=== PATIENT | female | born 1955 | race Caucasian/White ===

== ENCOUNTER → 2024-11-24 | Outpatient (CLI) | payer MEDICARE ==
--- NOTE | 2024-11-24 14:21 | MM ---
Reason for Exam: Screening (asymptomatic). Last mammogram was performed 1 year(s) and 8 month(s) ago. Patient History: Menarche at age 10. First Full-Term at age 16. Postmenopausal. Risk Values: Sherrill 5 year model risk: 1.3%. NCI Lifetime model risk: 3.5%. Prior Study Comparison: 01/05/2020 Bilateral Screening Mammogram, Unknown. 01/06/2021 Bilateral Screening Mammogram, Unknown. 01/08/2022 Bilateral Screening Mammogram, Unknown. 03/21/2023 Bilateral Screening Mammogram, Unknown. Tissue Density: The breasts are heterogeneously dense, which may obscure small masses. Findings: Benign-appearing vascular calcifications bilaterally as redemonstrated. There is 1.2 cm circumscribed mass in the middle depth upper aspect left breast not clearly seen on old outside studies approximately 5 cm distance from nipple. Overall Assessment: Incomplete: need additional imaging evaluation, BI-RAD 0 Management: Diagnostic Breast Ultrasound of the left breast. Targeted ultrasound left breast. Patient should continue monthly self-breast exams. A clinical breast exam by your physician is recommended on an annual basis. This exam should not preclude additional follow-up of suspicious palpable abnormalities. Note on Sherrill scores and lifetime risk: 1. A Sherrill score greater than 3% is considered moderate risk. If this is the case, consider specialist referral to assess eligibility for a risk reducing agent. 2. If overall lifetime risk for the development of breast cancer is 20% or higher, the patient may qualify for future screening with alternating mammogram and breast MRI. [facility], , 11/24/2024 2:17 PM. Electronically signed and approved by: Washington Bowman M.D.
== END | disposition home or self-care (01) ==
LOC: RADMAMWWP 11:44
PROVIDERS: ATTEND Family Medicine
DX: Z12.31 Encounter for screening mammogram for malignant neoplasm of breast (principal); R92.333 Mammographic heterogeneous density, bilateral breasts; R92.1 Mammographic calcification found on diagnostic imaging of breast; Z78.0 Asymptomatic menopausal state
CPT/HCPCS: 77063; 77067

== ENCOUNTER → 2024-11-26 | Outpatient (CLI) | payer MEDICARE ==
--- NOTE | 2024-11-26 16:03 | USB ---
Reason for Exam: Additional evaluation requested from abnormal screening. Patient History: Menarche at age 10. First Full-Term at age 16. Postmenopausal. Risk Values: Sherrill 5 year model risk: 1.3%. NCI Lifetime model risk: 3.5%. Technique: Method: Targeted. Prior Study Comparison: 01/08/2022 Bilateral Screening Mammogram, Unknown. 03/21/2023 Bilateral Screening Mammogram, Unknown. 11/24/2024 Bilateral MG 3D screening mammo wo cad, [facility]. Findings: The upper outer quadrant of the left breast, the axilla of the left breast and the retroareolar of the left breast were scanned. Targeted ultrasound. There is a 1.3 x 0.7 x 1.3 cm lobulated isoechoic area could correspond to the mammogram abnormality possible breast lobule at 12:00 position 5 cm distance from nipple. At 2:00 position there is by the by 4 mm oval hypoechoic circumscribed lesion that is too small to further characterize. Benign-appearing small lymph node in the left axilla is present . Overall Assessment: Probably benign, BI-RAD 3 Management: Diagnostic Mammogram of the left breast in 6 months. Diagnostic Breast Ultrasound of the left breast in 6 months. Precautionary short-term follow-up diagnostic evaluation. A clinical breast exam by your physician is recommended on an annual basis and results should be correlated with mammographic findings. This exam should not preclude additional follow-up of suspicious palpable abnormalities. Results were given to the patient verbally at the time of exam. [facility], , 11/26/2024 4:00 PM. Electronically signed and approved by: Washington Bowman M.D.
== END | disposition home or self-care (01) ==
LOC: RADUSWWP 15:22
PROVIDERS: ATTEND Family Medicine
DX: R92.8 Other abnormal and inconclusive findings on diagnostic imaging of breast (principal); Z78.0 Asymptomatic menopausal state